=== PATIENT | male | born 1950 ===

== ENCOUNTER 2017-08-09 07:19 | Day surgery (SDC) | payer MEDICARE, SELFPAY ==
[2016-11-21 08:35] VITALS: BMI 29.2
--- NOTE | 2017-08-09 07:26 | CP.SDSHP ---
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 esophageal varices, surveillance Pt. Evaluated Today:Candidate for Anesthesia & Procedure: Yes - Date & Time Date: 08/09/17 Time: 07:25 Short Stay Discharge - Short Stay Discharge Admitting Diagnosis/Reason for Visit: UNSPECIFIED CIRRHOSIS OF LIVER Disposition: HOME/ ROUTINE
[2017-08-09] MEDS ORDERED: Lactated Ringer's 500 ML IV ONE ×2 (08:09)
[2017-08-09] MEDS ORDERED: Propofol 10 mg/ml Inj (20 ML) ONE (08:54)
[2017-08-09] MEDS ORDERED: Lidocaine Hydrochloride 5 ML INJ ONE (08:54)
[2017-08-09] MEDS ORDERED: Pantoprazole 40 mg EC Tab PO ONE (09:00)
[2017-08-09 09:25] VITALS: TEMP 97
[2017-08-09 09:30] VITALS: RESP 18; O2SAT 99
[2017-08-09 10:02] VITALS: BP 131/85; PULSE 57
== END 2017-08-09 10:00 | disposition home or self-care (01) ==
LOC: C.ENDO 07:19
PROVIDERS: ATTEND Internal Medicine Gastroenterology
DX: I85.00 Esophageal varices without bleeding (principal); K29.70 Gastritis, unspecified, without bleeding
CPT/HCPCS: 43235; 82948; J2704; J7120

== ENCOUNTER 2018-03-19 10:16 | Day surgery (SDC) | payer MEDICARE, OTHER ==
[2016-11-21 08:35] VITALS: BMI 29.2
[2018-03-19] MEDS ORDERED: Lidocaine Hydrochloride 10 ML INJ ONE (15:56)
[2018-03-19] MEDS ORDERED: Bupivacaine 0.25% 20 ML INJ IJ ONE (16:03)
[2018-03-19 16:58] VITALS: RESP 16; O2SAT 98
[2018-03-19 17:33] VITALS: BP 152/85; PULSE 57; TEMP 97.9
--- NOTE | 2018-03-20 03:51 | OP ---
PROCEDURE DATE: 03/19/2018 PREOPERATIVE DIAGNOSIS: A 3-cm mass and lesion of the right leg. POSTOPERATIVE DIAGNOSIS: A 3-cm mass and lesion of the right leg. PROCEDURE PERFORMED: Wide and deep excision mass/lesion of the right leg. SURGEON: Drake Anderson MD TYPE OF ANESTHESIA: Local. BLOOD LOSS: 20 mL. POSTOPERATIVE CONDITION: Stable. DESCRIPTION OF PROCEDURE: The patient was taken to the operating room and now placed in the supine position. Local anesthesia was administered and the right leg was prepped and draped. A generous elliptical incision was made surrounding the mass. It was dissected free and removed. Tissue flaps were raised and a tissue transfer closure was performed with multiple layers of Monocryl, subcuticular Monocryl, and glue. The patient tolerated the procedure well, returned to recovery room in stable condition. Drake Anderson MD
== END 2018-03-19 17:37 | disposition home or self-care (01) ==
LOC: C.SDS 10:16
PROVIDERS: ATTEND Surgery
DX: L90.5 Scar conditions and fibrosis of skin (principal)

== ENCOUNTER 2018-07-18 15:55 | Observation (INO) | payer MEDICARE, OTHER ==
[2018-07-18 15:55] VITALS: BMI 29.2
[2018-07-18] MEDS ORDERED: Sodium Chloride 0.9% 1,000 ML IV ONE ×2 (16:29→18:11)
--- NOTE | 2018-07-18 16:37 | C.PDOC ---
History Of Present Illness 67 y/o male pt presents to the ER complaining of abdominal pain for x4 days. Associated sx includes diarrhea and weakness. Pt is scheduled for an endoscopy with Dr. Himanshu Aguilar in a couple of days. Pt denies nausea, vomiting, fever and chills. Time Seen by Provider: 07/18/18 16:25 Chief Complaint (Nursing): Abdominal Pain History Per: Patient History/Exam Limitations: no limitations Onset/Duration Of Symptoms: Days (x4) Current Symptoms Are (Timing): Still Present Past Medical History Reviewed: Historical Data, Nursing Documentation, Vital Signs Vital Signs: Last Vital Signs Temp 98 F 07/18/18 16:07 Pulse 111 H 07/18/18 16:07 Resp 18 07/18/18 16:07 BP 105/73 07/18/18 16:07 Pulse Ox 98 07/18/18 16:07 - Medical History PMH: Anxiety, Dementia (pt. 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 Constitutional: Negative for: Fever, Chills Gastrointestinal: Positive for: Abdominal Pain (lower), Diarrhea. Negative for: Nausea, Vomiting Neurological: Positive for: Weakness Physical Exam - Physical Exam Appears: Non-toxic, No Acute Distress Skin: Normal Color, Warm, Dry Head: Normacephalic Eye(s): bilateral: Normal Inspection, EOMI Oral Mucosa: Moist Throat: Normal Neck: Normal ROM, Supple Chest: Symmetrical Cardiovascular: Rhythm Regular Respiratory: Normal Breath Sounds Gastrointestinal/Abdominal: Soft, Tenderness (diffuse lower abdominal pain ), No Distention, No Guarding, No Rebound Back: No CVA Tenderness Extremity: Normal ROM (x4) Neurological/Psych: Oriented x3, Normal Speech, Normal Cognition Gait: Steady ED Course And Treatment - Laboratory Results Result Diagrams: 07/18/18 16:49 07/18/18 16:49 Lab Interpretation: Abnormal O2 Sat by Pulse Oximetry: 98 (RA) Pulse Ox Interpretation: Normal - CT Scan/US No standard instances Other Rad Studies (CT/US): Read By Radiologist, Radiology Report Reviewed CT/US Interpretation: HISTORY: Pain. COMPARISON: CT abdomen pelvis without and with IV contrast performed 10/15/15. TECHNIQUE: Contiguous axial images of the abdomen and pelvis. No oral or IV contrast administered. Coronal and Sagittal reformats generated and reviewed. Radiation dose: Total exam DLP = 748.36 mGy-cm. This CT exam was performed using one or more of the following dose reduction techniques: Automated exposure control, adjustment of the mA and/or kV according to patient size, and/or use of iterative reconstruction technique. FINDINGS: There is limited evaluation of the solid organs without the administration of IV contrast. LOWER THORAX: Bibasilar atelectasis. There is no visible pleural effusion or pneumothorax. Right basilar calcified granuloma. Moderate hiatal hernia. LIVER: Nodular hepatic contour.Hypoattenuation of the liver compatible with hepatic steatosis. GALLBLADDER AND BILE DUCTS: Cholelithiasis. PANCREAS: Unremarkable. SPLEEN: Splenomegaly. 16 mm probable splenule. ADRENALS: Unremarkable. KIDNEYS AND URETERS: No hydronephrosis or obstructing renal calculus. BLADDER: Irregular thick-walled underdistended urinary bladder. REPRODUCTIVE: Unremarkable. APPE NDIX: The appendix appears within normal limits of caliber. No secondary signs of acute appendicitis. BOWEL: Gastric wall thickening. The stomach is nondistended which limits evaluation. Lack of oral contrast limits evaluation for bowel pathology. The bowel loops appear within normal limits of caliber without evidence of intestinal obstruction. PERITONEUM: No significant free fluid. No definite free air. LYMPH NODES: Mesenteric, periportal, and retroperitoneal adenopathy measuring up to approximately 15 mm. VASCULATURE: Atherosclerotic calcifications of the aorta. No aortic aneurysm. BONES: No acute osseous abnormality is detected. OTHER FINDINGS: None. IMPRESSION: Splenomegaly. Hepatic cirrhosis. Fatty infiltration. Irregular thick-walled underdistended urinary bladder. Correlation with urinalysis. Indeterminate mesenteric, periportal, and retroperitoneal adenopathy measuring up to approximately 15 mm. Cholelithiasis. Gastric wall thickening. Correlate clin ically. Suggest further evaluation with endoscopy if indicated. Progress Note: Treated with IVF NSS x 2 liters and zofran Reassessment Condition: Unchanged - Physician Consult Information Physician Contacted: Jeimy Perez Outcome Of Conversation: admit Medical Decision Making Medical Decision Making: Impression: abdominal pain with diarrhea and weakness Plans: -- CT scan abd and pelvis -- chem labs -- blood work -- IV fluids -- UA Disposition Discussed With Dr.: Jeimy Perez Doctor Will See Patient In The: Hospital - Disposition Disposition: HOSPITALIZED Disposition Time: 18:30 Condition: STABLE Forms: [facility] (Latvian) - POA Present On Arrival: None - Clinical Impression Clinical Impression: Abdominal pain, Diarrhea, Dehydration - PA / CORPORATE QUALITY ASSURANCE MANAGER / Resident Statement MD/DO has reviewed & agrees with the documentation as recorded. - Scribe Statement The provider has reviewed the documentation as recorded by the Roxanne Jefferson Do All medical record entries made by the Scribe were at my direction and personally dictated by me. I have reviewed the chart and agree that the record accurately reflects my personal performance of the history, physical exam, medical decision making, and the department course for this patient. I have also personally directed, reviewed, and agree with the discharge instructions and disposition. Decision To Admit - Pt Status Changed To: Hospital Disposition Of: Observation - . Bed Request Type: Regular Admitting Physician: Jeimy Perez Patient Diagnosis: Abdominal pain, Diarrhea, Dehydration
[2018-07-18 16:56] LABS: BASO # 0.1 K/uL (0.0-0.2); BASO % 0.8 % (0.0-2.0); EOS # 0.1 K/uL (0.0-0.7); EOS % 1.1 % (0.0-4.0); HEMOGLOBIN 14.2 g/dL (12.0-18.0); LYMPH % 26.8 % (20.0-40.0); MEAN CELL VOLUME 84.3 fL (80.0-94.0); MEAN CORPUSCULAR HEMOGLOBIN 28.5 pg (27.0-31.0); MEAN CORPUSCULAR HGB CONC 33.9 g/dL (33.0-37.0); MEAN PLATELET VOLUME 9.9 fL (7.2-11.7); MONO # 1.1 K/uL (0.0-0.8); MONO % 14.8 % (0.0-10.0); NEUT # 4.2 K/uL (1.8-7.0); NEUT % 56.5 % (50.0-75.0); NRBC % 0.1 % (0.0-2.0); RBC 4.98 Mil/uL (4.40-5.90); RED CELL DISTRIBUTION WIDTH 15.2 % (11.5-14.5); WHITE BLOOD COUNT 7.5 K/uL (4.8-10.8)
[2018-07-18] MEDS ORDERED: Sodium Chloride 0.9% 1,000 ML ONE (16:56)
[2018-07-18 17:25] LABS: ALB/GLOB RATIO 1.3 (1.0-2.1); ALBUMIN 4.2 g/dL (3.5-5.0); CALCIUM 9.8 mg/dl (8.6-10.4)
--- NOTE | 2018-07-18 17:58 | CT ---
PROCEDURE: CT Abdomen and Pelvis without Oral or IV contrast. HISTORY: Pain COMPARISON: CT abdomen pelvis without and with IV contrast performed 10/15/15 TECHNIQUE: Contiguous axial images of the abdomen and pelvis. No oral or IV contrast administered. Coronal and Sagittal reformats generated and reviewed. Radiation dose: Total exam DLP = 748.36 mGy-cm. This CT exam was performed using one or more of the following dose reduction techniques: Automated exposure control, adjustment of the mA and/or kV according to patient size, and/or use of iterative reconstruction technique. FINDINGS: There is limited evaluation of the solid organs without the administration of IV contrast. LOWER THORAX: Bibasilar atelectasis. There is no visible pleural effusion or pneumothorax. Right basilar calcified granuloma. Moderate hiatal hernia. LIVER: Nodular hepatic contour.Hypoattenuation of the liver compatible with hepatic steatosis. GALLBLADDER AND BILE DUCTS: Cholelithiasis. PANCREAS: Unremarkable. SPLEEN: Splenomegaly. 16 mm probable splenule. ADRENALS: Unremarkable. KIDNEYS AND URETERS: No hydronephrosis or obstructing renal calculus. BLADDER: Irregular thick-walled underdistended urinary bladder. REPRODUCTIVE: Unremarkable. APPENDIX: The appendix appears within normal limits of caliber. No secondary signs of acute appendicitis. BOWEL: Gastric wall thickening. The stomach is nondistended which limits evaluation. Lack of oral contrast limits evaluation for bowel pathology. The bowel loops appear within normal limits of caliber without evidence of intestinal obstruction. PERITONEUM: No significant free fluid. No definite free air. LYMPH NODES: Mesenteric, periportal, and retroperitoneal adenopathy measuring up to approximately 15 mm. VASCULATURE: Atherosclerotic calcifications of the aorta. No aortic aneurysm. BONES: No acute osseous abnormality is detected. OTHER FINDINGS: None. IMPRESSION: Splenomegaly. Hepatic cirrhosis. Fatty infiltration. Irregular thick-walled underdistended urinary bladder. Correlation with urinalysis. Indeterminate mesenteric, periportal, and retroperitoneal adenopathy measuring up to approximately 15 mm. Cholelithiasis. Gastric wall thickening. Correlate clinically. Suggest further evaluation with endoscopy if indicated.
[2018-07-18 18:11] LABS: SQUAMOUS EPITHIAL < 1 /hpf (0-5); URINE BACTERIA RARE (<OCC); URINE BILIRUBIN NEGATIVE (NEGATIVE); URINE BLOOD NEGATIVE (NEGATIVE); URINE CLARITY Clear (Clear); URINE COLOR Yellow (YELLOW); URINE GLUCOSE (UA) NORMAL (Normal); URINE LEUKOCYTE ESTERASE NEG Leu/uL (Negative); URINE PROTEIN 1+ mg/dL (NEGATIVE); URINE UROBILINOGEN NORMAL mg/dL (0.2-1.0)
[2018-07-18] MEDS: Sodium Chloride 0.9% 1,000 ML IV SCH (23:06)
[2018-07-19 07:03] LABS: BLOOD UREA NITROGEN 20 mg/dL (9-20); CALCIUM 9.2 mg/dl (8.6-10.4); GFR NON-AFRICAN AMERICAN 51
[2018-07-19 07:17] LABS: BASO % 0.4 % (0.0-2.0); EOS # 0.1 K/uL (0.0-0.7); EOS % 1.6 % (0.0-4.0); HEMOGLOBIN 13.2 g/dL (12.0-18.0); LYMPH # 1.3 K/uL (1.0-4.3); LYMPH % 25.2 % (20.0-40.0); MEAN CELL VOLUME 85.6 fL (80.0-94.0); MEAN CORPUSCULAR HEMOGLOBIN 28.7 pg (27.0-31.0); MEAN CORPUSCULAR HGB CONC 33.5 g/dL (33.0-37.0); MEAN PLATELET VOLUME 9.4 fL (7.2-11.7); MONO # 0.7 K/uL (0.0-0.8); MONO % 14.5 % (0.0-10.0); NEUT % 58.3 % (50.0-75.0); RBC 4.6 Mil/uL (4.40-5.90); RED CELL DISTRIBUTION WIDTH 15.2 % (11.5-14.5); WHITE BLOOD COUNT 5.1 K/uL (4.8-10.8)
[2018-07-19] MEDS ORDERED: PROTEASE PO SCH ×2 (10:00)
[2018-07-19] MEDS ORDERED: LIPASE PO SCH ×2 (10:00)
[2018-07-19] MEDS ORDERED: AMYLASE PO SCH ×2 (10:00)
[2018-07-19] MEDS: Cholestyramine 4 gm/Pkt UD PO SCH (10:07)
[2018-07-19] MEDS: Enoxaparin 40 mg Syringe SC SCH (10:08)
--- NOTE | 2018-07-19 11:35 | CP.PCM.HP ---
History of Present Illness - History of Present Illness History of Present Illness: pt came in toed admited for diarhea abd dianelys dehydration and weeknessfeels beter now Present on Admission - Present on Admission Any Indicators Present on Admission: No Review of Systems - Review of Systems Systems not reviewed;Unavailable: Acuity of Condition - Constitutional Constitutional: As Per HPI - EENT Eyes: As Per HPI Ears: As Per HPI Nose/Mouth/Throat: As Per HPI - Gastrointestinal Gastrointestinal: Abdominal Pain, Bloating, Diarrhea - Genitourinary Genitourinary: As Per HPI - Reproductive: Male Reproductive:Male: As Per HPI - Musculoskeletal Musculoskeletal: As Per HPI - Integumentary Integumentary: As Per HPI - Neurological Neurological: As Per HPI - Psychiatric Psychiatric: As Per HPI - Endocrine Endocrine: Flushing - Hematologic/Lymphatic Hematologic: As Per HPI Past Patient History - Past Medical History & Family History Past Medical History?: Yes - Past Social History Smoking Status: Former Smoker - CARDIAC Hx Hypercholesterolemia: Yes Hx Hypertension: Yes - PULMONARY Hx Respiratory Disorders: No - NEUROLOGICAL Hx Dementia: Yes (pt. AAOX3) Hx Transient Ischemic Attacks (TIA): Yes - HEENT Hx HEENT Problems: Yes Other/Comment: glasses at all times - RENAL Hx Chronic Kidney Disease: No - ENDOCRINE/METABOLIC Hx Endocrine Disorders: Yes Hx Diabetes Mellitus Type 2: Yes - HEMATOLOGICAL/ONCOLOGICAL Hx Blood Disorders: Yes Hx Cirrhosis: Yes Hx Hepatitis C: Yes Other/Comment: Pt. states low PLT, poss. GI Bleeding(Hx) - INTEGUMENTARY Hx Dermatological Problems: No - MUSCULOSKELETAL/RHEUMATOLOGICAL Hx Musculoskeletal Disorders: No - GASTROINTESTINAL Hx Gastrointestinal Disorders: Yes Hx Hemorrhoids: Yes Other/Comment: pt. 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) - SURGICAL HISTORY Hx Surgeries: Yes - ANESTHESIA Hx Anesthesia: Yes Hx Anesthesia Reactions: No Hx Malignant Hyperthermia: No Meds Allergies/Adverse Reactions: Allergies Allergy/AdvReac Type Severity Reaction Status Date / Time No Known Allergies Allergy Verified 07/18/18 16:09 Physical Exam - Constitutional Appears: No Acute Distress - Head Exam Head Exam: NORMAL INSPECTION - ENT Exam ENT Exam: Normal Exam - Neck Exam Neck exam: Positive for: Normal Inspection - Respiratory Exam Respiratory Exam: NORMAL BREATHING PATTERN - Cardiovascular Exam Cardiovascular Exam: REGULAR RHYTHM - GI/Abdominal Exam GI & Abdominal Exam: Normal Bowel Sounds - Rectal Exam Rectal Exam: NORMAL INSPECTION - Exam Exam: NORMAL INSPECTION - Extremities Exam Extremities exam: Positive for: normal inspection - Back Exam Back exam: NORMAL INSPECTION - Neurological Exam Neurological exam: Alert, Oriented x3 - Psychiatric Exam Psychiatric exam: Normal Affect - Skin Skin Exam: Normal Color Results - Vital Signs Recent Vital Signs: Last Vital Signs Temp 98 F 07/19/18 08:16 Pulse 61 07/19/18 08:16 Resp 20 07/19/18 08:16 BP 147/80 07/19/18 08:16 Pulse Ox 97 07/19/18 08:16 - Labs Result Diagrams: 07/19/18 06:42 07/19/18 06:42 Labs: Laboratory Results - last 24 hr 07/18/18 07/18/18 07/18/18 16:49 16:49 17:58 WBC 7.5 RBC 4.98 Hgb 14.2 Hct 42.0 MCV 84.3 MCH 28.5 MCHC 33.9 RDW 15.2 H Plt Count 134 MPV 9.9 Neut % (Auto) 56.5 Lymph % (Auto) 26.8 [place] % (Auto) 14.8 H Eos % (Auto) 1.1 Baso % (Auto) 0.8 Neut # (Auto) 4.2 Lymph # (Auto) 2.0 [place] # (Auto) 1.1 H Eos # (Auto) 0.1 Baso # (Auto) 0.1 Sodium 135 Potassium 4.1 Chloride 96 L Carbon Dioxide 29 Anion Gap 14 BUN 32 H Creatinine 1.9 H Est GFR ( Amer) 43 Est GFR (Non-Af Amer) 36 POC Glucose (mg/dL) Random Glucose 133 H Calcium 9.8 Total Bilirubin 1.3 AST 38 ALT 32 Alkaline Phosphatase 97 Total Protein 7.5 Albumin 4.2 Globulin 3.3 Albumin/Globulin Ratio 1.3 Lipase 183 Urine Color Yellow Urine Clarity Clear Urine pH 5.0 Ur Specific [place] 1.014 Urine Protein 1+ H Urine Glucose (UA) Normal Urine Ketones Negative Urine Blood Negative Urine Nitrate Negative Urine Bilirubin Negative Urine Urobilinogen Normal Ur Leukocyte Esterase Neg Urine WBC (Auto) 2 Urine RBC (Auto) 1 Ur Squamous Epith Cells < 1 Urine Bacteria Rare Hyaline Casts 3-5 H 07/19/18 07/19/18 07/19/18 06:42 06:42 07:11 WBC 5.1 RBC 4.60 Hgb 13.2 Hct 39.3 MCV 85.6 MCH 28.7 MCHC 33.5 RDW 15.2 H Plt Count 96 L D MPV 9.4 Neut % (Auto) 58.3 Lymph % (Auto) 25.2 [place] % (Auto) 14.5 H Eos % (Auto) 1.6 Baso % (Auto) 0.4 Neut # (Auto) 3.0 Lymph # (Auto) 1.3 [place] # (Auto) 0.7 Eos # (Auto) 0.1 Baso # (Auto) 0.0 Sodium 136 Potassium 4.4 Chloride 101 Carbon Dioxide 28 Anion Gap 12 BUN 20 Creatinine 1.4 Est GFR ( Amer) > 60 Est GFR (Non-Af Amer) 51 POC Glucose (mg/dL) 137 H Random Glucose 136 H Calcium 9.2 Total Bilirubin AST ALT Alkaline Phosphatase Total Protein Albumin Globulin Albumin/Globulin Ratio Lipase Urine Color Urine Clarity Urine pH Ur Specific [place] Urine Protein Urine Glucose (UA) Urine Ketones Urine Blood Urine Nitrate Urine Bilirubin Urine Urobilinogen Ur Leukocyte Esterase Urine WBC (Auto) Urine RBC (Auto) Ur Squamous Epith Cells Urine Bacteria Hyaline Casts Assessment & Plan - Assessment and Plan (Free Text) Assessment: ac dehydration ac diaehea imroved liver scirhsis s/p hep c treatment chrinic gastritis will disc pt today and for endoscopy by dr cee Plan: dc home - Date & Time Date: 07/19/18 Time: 11:38
[2018-07-19] MEDS ORDERED: (Novolog) Insulin Aspart, Recombinant 100 u/ml 10 ml vial SC SCH (12:50)
[2018-07-19] MEDS: (Novolog) Insulin Aspart, Recombinant 100 u/ml 10 ml vial SC SCH ×3 (13:04→21:46)
[2018-07-19] MEDS: Sodium Chloride 0.9% 1,000 ML IV SCH (13:04)
[2018-07-19 13:30] VITALS: O2SAT 98
[2018-07-20] MEDS: (Novolog) Insulin Aspart, Recombinant 100 u/ml 10 ml vial SC SCH (07:39)
[2018-07-20 08:13] VITALS: RESP 20; TEMP 98.4
[2018-07-20 09:19] VITALS: BP 151/92; PULSE 61
[2018-07-20] MEDS: Enoxaparin 40 mg Syringe SC SCH (09:20)
[2018-07-20] MEDS: Cholestyramine 4 gm/Pkt UD PO SCH (09:20)
--- NOTE | 2018-07-20 10:42 | CP.PCM.PN ---
Subjective - Date & Time of Evaluation Date of Evaluation: 07/20/18 Time of Evaluation: 10:39 - Subjective Subjective: pt ate all his breakfastno pain no vomiting Objective - Vital Signs/Intake and Output Vital Signs (last 24 hours): Temp Pulse Resp BP Pulse Ox 98.4 F 61 20 151/92 H 98 07/20/18 08:00 07/20/18 09:19 07/20/18 08:00 07/20/18 09:19 07/20/18 08:00 Intake and Output: 07/20/18 07/20/18 06:59 18:59 Intake Total 640 Balance 640 - Medications Medications: Current Medications Cholestyramine Resin (Questran) 4 gm PO DAILY [facility] Last Admin: 07/20/18 09:20 Dose: 4 gm Enoxaparin Sodium (Lovenox) 40 mg SC DAILY [facility] Last Admin: 07/20/18 09:20 Dose: 40 mg Home Med (Lipase/Protease/Amylase [Creon Dr 12,000 Units Capsule]) 1 tab PO DAILY [facility] Sodium Chloride (Sodium Chloride 0.9%) 1,000 mls @ 80 mls/hr IV .[id number] [facility] Last Admin: 07/19/18 13:04 Dose: Not Given Insulin Aspart (Novolog) 0 unit SC [facility]; Protocol Last Admin: 07/20/18 07:39 Dose: Not Given Lisinopril (Zestril) 5 mg PO DAILY [facility] Last Admin: 07/20/18 09:20 Dose: 5 mg Loperamide HCl (Imodium) 2 mg PO TID PRN PRN Reason: Diarrhea Propranolol HCl (Inderal) 40 mg PO DAILY [facility] Last Admin: 07/20/18 09:20 Dose: 40 mg Sitagliptin Phosphate (Januvia) 50 mg PO DAILY [facility] Last Admin: 07/20/18 09:20 Dose: 50 mg - Labs Labs: 07/19/18 06:42 07/19/18 06:42 - Constitutional Appears: Non-toxic - Head Exam Head Exam: NORMAL INSPECTION - Eye Exam Eye Exam: Normal appearance Pupil Exam: NORMAL ACCOMODATION - ENT Exam ENT Exam: Normal Exam - Neck Exam Neck Exam: Full ROM - Respiratory Exam Respiratory Exam: Clear to Ausculation Bilateral - Cardiovascular Exam Cardiovascular Exam: REGULAR RHYTHM - Exam Exam: NORMAL INSPECTION - Extremities Exam Extremities Exam: Full ROM - Back Exam Back Exam: NORMAL INSPECTION - Neurological Exam Neurological Exam: Alert, Normal Gait, Oriented x3 - Psychiatric Exam Psychiatric exam: Normal Affect - Skin Skin Exam: Normal Color Assessment and Plan - Assessment and Plan (Free Text) Assessment: pt improved tolerating diet bs ok dehydration improved willdc home today f/u by his md Plan: disch
== END 2018-07-20 12:04 | disposition home or self-care (01) ==
LOC: C.ER 15:55 → C.9E 18:24 → C.5S 22:01
PROVIDERS: ADMIT Internal Medicine; ATTEND Internal Medicine
DX: K29.70 Gastritis, unspecified, without bleeding (principal); E86.0 Dehydration; K74.60 Unspecified cirrhosis of liver; Z86.73 Personal history of transient ischemic attack (TIA), and cerebral infarction without residual deficits; B19.20 Unspecified viral hepatitis C without hepatic coma; F32.9 Major depressive disorder, single episode, unspecified; F41.9 Anxiety disorder, unspecified; E11.9 Type 2 diabetes mellitus without complications; Z87.440 Personal history of urinary (tract) infections; E78.00 Pure hypercholesterolemia, unspecified; Z87.891 Personal history of nicotine dependence
CPT/HCPCS: 36415; 74176; 80048; 80053; 81001; 82948; 83690; 85025; 96361; 96372; 96374; 96375; 99285; G0378; J1650; J2270; J2405; J7030

== ENCOUNTER 2018-07-25 08:37 | Day surgery (SDC) | payer MEDICARE, OTHER ==
[2018-07-25 09:12] VITALS: BMI 30.2
--- NOTE | 2018-07-25 09:12 | CP.SDSHP ---
Same Day Surgery H & P - History Proposed Procedure: egd Pre-Op Diagnosis: surveillance of esophageal varices. 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 cirrhosis from HCV-S/P SVR Pt. Evaluated Today:Candidate for Anesthesia & Procedure: Yes - Date & Time Date: 07/25/18 Time: 09:12 Short Stay Discharge - Short Stay Discharge Admitting Diagnosis/Reason for Visit: UNSPECIFIED CIRRHOSIS OF LIVER Disposition: HOME/ ROUTINE
[2018-07-25] MEDS ORDERED: Pantoprazole 40 mg EC Tab PO ONE (09:30)
[2018-07-25] MEDS ORDERED: Lactated Ringer's 500 ML IV ONE ×2 (09:38)
[2018-07-25] MEDS ORDERED: Propofol 10 mg/ml Inj (20 ML) ONE (09:47)
[2018-07-25 10:20] VITALS: TEMP 97.7; O2SAT 100
[2018-07-25 10:52] VITALS: RESP 19
[2018-07-25 10:54] VITALS: BP 124/68; PULSE 63
== END 2018-07-25 12:50 | disposition home or self-care (01) ==
LOC: C.ENDO 08:37
PROVIDERS: ATTEND Internal Medicine Gastroenterology
DX: K74.60 Unspecified cirrhosis of liver (principal); B18.2 Chronic viral hepatitis C; K76.6 Portal hypertension; K31.89 Other diseases of stomach and duodenum; I85.00 Esophageal varices without bleeding; K29.70 Gastritis, unspecified, without bleeding; D64.9 Anemia, unspecified; D69.59 Other secondary thrombocytopenia; E11.9 Type 2 diabetes mellitus without complications; E66.9 Obesity, unspecified; I10 Essential (primary) hypertension
CPT/HCPCS: 43235; 82948; J2001; J2704; J7120

== ENCOUNTER 2018-10-23 17:55 | Inpatient (IN) | payer MEDICARE, OTHER ==
[2018-10-23 17:56] VITALS: BMI 30.2
[2018-10-23 18:56] LABS: BASO % 0.6 % (0.0-2.0); EOS # 0.1 K/uL (0.0-0.7); EOS % 1.7 % (0.0-4.0); HEMOGLOBIN 12.9 g/dL (12.0-18.0); LYMPH # 1.3 K/uL (1.0-4.3); MEAN CORPUSCULAR HEMOGLOBIN 29.5 pg (27.0-31.0); MEAN CORPUSCULAR HGB CONC 33.3 g/dL (33.0-37.0); MEAN PLATELET VOLUME 10.2 fL (7.2-11.7); MONO # 0.6 K/uL (0.0-0.8); MONO % 9.2 % (0.0-10.0); NEUT # 4.2 K/uL (1.8-7.0); NEUT % 67.5 % (50.0-75.0); NRBC % 0.1 % (0.0-2.0); RBC 4.36 Mil/uL (4.40-5.90); WHITE BLOOD COUNT 6.2 K/uL (4.8-10.8)
--- NOTE | 2018-10-23 18:56 | C.PDOC ---
History Of Present Illness 68 y/o male with a PMHx of liver cirrhosis, HTN, and DM, presents to the ED complaining of 2 complaints. pt reports penile and testicular swelling for the past few days. pt is poor historian, and states "he just noticed it in the [place], and felt it would get better". denies trauma or inciting factor. Also reports he has upper abd pain c/o of mild nausea, and "reflux". Patient is a poor historian. No fevers or other complaints no urinary complaints. Time Seen by Provider: 10/23/18 18:31 Chief Complaint (Nursing): Male Genitourinary History Per: Patient History/Exam Limitations: no limitations Onset/Duration Of Symptoms: Days Current Symptoms Are (Timing): Still Present Associated Symptoms: Nausea Past Medical History Reviewed: Historical Data, Nursing Documentation, Vital Signs Vital Signs: Last Vital Signs Temp 98.1 F 10/23/18 17:58 Pulse 71 10/23/18 17:58 Resp 20 10/23/18 17:58 BP 158/102 H 10/23/18 17:58 Pulse Ox 97 10/23/18 17:58 - Medical History PMH: Anxiety, Dementia (pt. AAOX3), Depression, Diabetes, Gastritis, GERD, HTN, Hypercholesterolemia, TIA Denies: Fractures, Chronic Kidney Disease Surgical History: Endoscopy Denies: Pacemaker Family History: States: Unknown Family Hx - Social History Hx Tobacco Use: Yes Hx Alcohol Use: Yes (sober x 17 years) Hx Substance Use: Yes (MORE THAN 20 YEARS ABSTINENCE) - Immunization History Hx Tetanus Toxoid Vaccination: No Hx Influenza Vaccination: Yes Hx Pneumococcal Vaccination: Yes Review Of Systems Except As Marked, All Systems Reviewed And Found Negative. Constitutional: Negative for: Fever, Chills Cardiovascular: Negative for: Chest Pain Respiratory: Negative for: Shortness of Breath Gastrointestinal: Positive for: Nausea ("reflux acting up"). Negative for: Ab dominal Pain Genitourinary: Positive for: Other (Penile swelling). Negative for: Dysuria, Hematuria, Rash Neurological: Negative for: Weakness, Dizziness Physical Exam - Physical Exam Appears: Non-toxic, No Acute Distress Skin: Warm, Dry Head: Atraumatic, Normacephalic Eye(s): bilateral: Normal Inspection, PERRL, EOMI Neck: Normal ROM Chest: Symmetrical, No Tenderness Cardiovascular: Rhythm Regular, No Murmur Respiratory: Normal Breath Sounds, No Rales, No Rhonchi, No Wheezing Gastrointestinal/Abdominal: Soft, No Tenderness, No Distention Male Genital: No Testicular Tenderness, Testicular Swelling (diffuse penile and testicular swelling) Extremity: Bilateral: Atraumatic, Normal Color And Temperature Pulses: Left Radial: Normal, Right Radial: Normal Neurological/Psych: Oriented x3 Gait: Steady ED Course And Treatment - Laboratory Results Result Diagrams: 10/24/18 07:29 10/24/18 07:29 O2 Sat by Pulse Oximetry: 97 (RA) Pulse Ox Interpretation: Normal - CT Scan/US Testicular US Other Rad Studies (CT/US): Read By Radiologist, Radiology Report Reviewed CT/US Interpretation: Name:PIOTR BABB Exam Date:Oct 23, 2018 7:53:44 PM EST. Modality Type:SD\\US\\SR. Description:US - TESTICULAR. Gender:M Laterality:Bilateral. :52 Referring Physician:Matt Hill (). History. Testicular swelling. Technique. Realtime sonography through the scrotum with color and Doppler flow. Comparison. None Available. Findings. Right Testicle. Measures 4.99 x 2.4 x 2.92 cm. Normal echotexture and flow. Right Epididymis. Epididymal head measures 1.55 x 0.67 x 1.18 cm. Grossly unremarkable appearance with normal flow. Left Testicle. Measures 5.04 x 2.64 x 2.71 cm. Normal echotexture and flow. Left Epididymis. Epididymal head measures 1.02 x 0.66 x 0.99 cm. Cyst measures 0.31 x 0.19 x 0.23 cm. Hydrocele. Bilateral. Varicocele. Bilateral. Other Findings. None. Impression. 1. Left epididymal head cyst. 2. Bilateral hydroceles. 3. Bilateral varicoceles. . Electronically signed on Oct 23, 2018 9:10:05 PM EST by: Gary Loomis M.D., CAROLYNN Certified By ABR & CBCCT. Fellowship Trained MRI and CT Specialist CT abd/pelvis Other Rad Studies (CT/US): Read By Radiologist, Radiology Report Reviewed CT/US Interpretation: Name:HOLLEY SALDAÑA Exam Date:Oct 23, 2018 8:23:21 PM EST. Modality Type:CT. Description:CT - ABDOMEN AND PELVIS WITH CORONAL AND SAGITTAL MPRS. Gender:M Laterality:Not applicable. :52 Referring Physician:Matt Hill (). EXAM: CT Abdomen and Pelvis with IV contrast. CLINICAL HISTORY: Testicular pain. TECHNIQUE: Axial computed tomography images of the abdomen and pelvis with intravenous contrast. 0.00 mGy-cm. CONTRAST: With; 100MLS OMNI 300. COMPARISON: None provided. FINDINGS: LUNG BASES: The lung bases appear clear. No pleural effusions are seen. LIVER: Liver is markedly lobulated with enlarged caudate lobe consistent with cirrhosis. No evidence of hepatic mass. GALLBLADDER AND BILE DUCTS: A 3.2 mm cholelith is lodged within the gallbladder neck. The gallbladder is partially contracted and demonstrates gallbladder wall thickening which measures up to approximately 5.3 mm. Consider additional evaluation with abdominal ultrasound and or hepatobiliary scan. No biliary ductal dilatation is evident. PANCREAS: Unremarkable. SPLEEN: Unremarkable. Incidental note is made of an accessory splenic lobule along the inferior pole; a normal variant finding. ADRENAL GLANDS: Unremarkable. KIDNEYS, URETERS, AND BLADDER: The kidneys appear within normal limits. There is no hydronephrosis or hydroureter. No urinary calculi are seen. The urinary bladder is normal in size and configuration. STOMACH AND BOWEL: Unremarkable appearance of the stomach and bowel. No evidence of bowel obstruction. No evidence suggesting enteritis or colitis. APPENDIX: No evidence of acute appendicitis on CT examination. PERITONEUM: No free fluid. No free air. A small left inguinal hernia is present which contains fat. LYMPH NODES: There is some mild periaortic and portacaval lymphadenopathy noted associated with mesenteric stranding. Please excludes hepatitis. REPRODUCTIVE: The seminal vesicles appeared normal and symmetrical in size. There is prostatic hypertrophy noted which measured 5.6 cm transversely. VASCULATURE: No evidence of abdominal aortic aneurysm. Extensive atherosclerotic vascular plaquing is present. BONES: No aggressive appearing osseous lesion. No acute osseous pathology evident. IMPRESSION: 1. Evidence of a 3.2 mm cholelith lodged within the gallbladder neck, contracted gallbladder. Consider additional evaluation with abdominal ultrasound and or hepatobiliary scan. 2. Periaortic and daniel-portacaval mild ymphadenopathy is noted. Mesenteric stranding. Please excludes hepatitis. 3. Liver is markedly lobulated with enlarged caudate lobe consistent with cirrhosis. No evidence of hepatic mass. 4. Prostatic hypertrophy with measurement as given above. 5. Small left inguinal hernia containing fat. . Electronically signed on Oct 23, 2018 9:47:07 PM EST by: Gary Loomis M.D., CAROLYNN Certified By ABR & CBCCT. Fellowship Trained MRI and CT Specialist Medical Decision Making Medical Decision Making: r Initial Plan: - Labs - Testicular US - 40 mg IV Protonix - Reassess 19:[address] Abd/Pelvis Still pending ultrasound. Labs reviewed. US reviewed, shows bilateral hydroceles and varicoceles, and left epididymal head cyst. CT findings reviewed. Patient started on IV zosyn. 21:57 Case discussed with PMD Dr. Perez, will admit patient. request jamil on consult Disposition - Disposition Disposition: HOSPITALIZED Condition: GOOD - Scribe Statement The provider has reviewed the documentation as recorded by the Roxanne Peng Provider Attestation: All medical record entries made by the Roxanne were at my direction and personally dictated by me. I have reviewed the chart and agree that the record accurately reflects my personal performance of the history, physical exam, medical decision making, and the department course for this patient. I have also personally directed, reviewed, and agree with the discharge instructions and disposition.
[2018-10-23 18:57] LABS: MEAN CELL VOLUME 88.6 fL (80.0-94.0)
[2018-10-23 19:11] LABS: ALB/GLOB RATIO 1.3 (1.0-2.1); ALBUMIN 4.3 g/dL (3.5-5.0); ALT/SGPT 31 U/L (21-72); AST/SGOT 39 U/L (17-59); BLOOD UREA NITROGEN 12 mg/dL (9-20); CALCIUM 9.8 mg/dl (8.6-10.4); GFR NON-AFRICAN AMERICAN > 60; LIPASE 173 U/L (23-300)
[2018-10-23 19:13] LABS: INR 1.2; PROTHROMBIN TIME 13.6 SECONDS (9.7-12.2)
[2018-10-23] MEDS ORDERED: Iohexol 300 100 ML IJ ONE (19:26)
[2018-10-23 21:14] LABS: SQUAMOUS EPITHIAL < 1 /hpf (0-5); URINE BILIRUBIN NEGATIVE (NEGATIVE); URINE BLOOD NEGATIVE (NEGATIVE); URINE CLARITY Clear (Clear); URINE COLOR Yellow (YELLOW); URINE GLUCOSE (UA) NORMAL (Normal); URINE LEUKOCYTE ESTERASE NEG Leu/uL (Negative); URINE PROTEIN NEGATIVE (NEGATIVE); URINE UROBILINOGEN NORMAL mg/dL (0.2-1.0)
[2018-10-23] MEDS ORDERED: Piperacillin/Tazobact 3.375 gm 100 ML IVPB STA (21:52)
[2018-10-23] MEDS ORDERED: Clotrimazole 1% Cream 15 GM TUBE TOP STA (21:53)
[2018-10-23] MEDS ORDERED: Piperacillin/Tazobact 3.375 gm 100 ML IVPB ONE (22:28)
--- NOTE | 2018-10-23 23:43 | CP.PCM.CON ---
History of Present Illness - History of Present Illness History of Present Illness: SURGERY CONSULT NOTE FOR DR. BAILEY Reason: r/o cholecystitis 68M presents with penile swelling. Patient states swelling started 2 days ago after taking Viagra and having "rough" sex. Patient denies any abnormal penile discharge. Patient denies any abdominal pain, he denies any nausea or vomiting, denies any fevers or chills. Patient has been tolerating regular diet and is currently hungry. PMH: DM, HTN, GERD, Gastritis, Liver cirrhosis, Hep C PSH: Right leg cyst removal Social: admits to tobacco use, denies alcohol and illicit drug use for past 20 years Allergies: NKDA Past Patient History - Past Medical History & Family History Past Medical History?: Yes - Past Social History Smoking Status: Former Smoker - CARDIAC Hx Hypercholesterolemia: Yes Hx Hypertension: Yes Hx Pacemaker: No - PULMONARY Hx Respiratory Disorders: No - NEUROLOGICAL Hx Dementia: Yes (pt. AAOX3) Hx Transient Ischemic Attacks (TIA): Yes - HEENT Hx HEENT Problems: No - RENAL Hx Chronic Kidney Disease: No - ENDOCRINE/METABOLIC Hx Endocrine Disorders: Yes Hx Diabetes Mellitus Type 2: Yes - HEMATOLOGICAL/ONCOLOGICAL Hx Blood Disorders: Yes Hx Blood Transfusions: No Hx Cancer: No Hx Hepatitis C: Yes (TREATMENT COMPLETED) Other/Comment: THROMBOCYTOPENIA - INTEGUMENTARY Hx Dermatological Problems: No - MUSCULOSKELETAL/RHEUMATOLOGICAL Hx Fractures: No - GASTROINTESTINAL Hx Gastritis: Yes - GENITOURINARY/GYNECOLOGICAL Hx Genitourinary Disorders: No - PSYCHIATRIC Hx Anxiety: Yes Hx Depression: Yes Hx Substance Use: Yes (MORE THAN 20 YEARS ABSTINENCE) - SURGICAL HISTORY Hx Surgeries: Yes Hx Musculoskeletal Surgery: Yes (LESION ON RIGHT LEG REMOVED) - ANESTHESIA Hx Anesthesia: Yes Hx Anesthesia Reactions: No Hx Malignant Hyperthermia: No Meds Allergies/Adverse Reactions: Allergies Allergy/AdvReac Type Severity Reaction Status Date / Time No Known Allergies Allergy Verified 10/23/18 18:01 - Medications Medications: Current Medications Amlodipine Besylate (Norvasc) 5 mg PO DAILY DNAILO Home Med (Lipase/Protease/Amylase [[place] Dr 12,000 Units Capsule]) 1 tab PO TID DANILO Insulin Aspart (Novolog) 0 unit SC ACHS DANILO; Protocol Losartan Potassium (Cozaar) 100 mg PO DAILY DANILO Morphine Sulfate (Morphine) 1 mg IVP Q6 DANILO Multivitamins (Hexavitamin) 1 tab PO DAILY [facility] Pantoprazole Sodium (Protonix Ec Tab) 40 mg PO DAILY [facility] Propranolol HCl (Inderal) 10 mg PO DAILY [facility] Sucralfate (Carafate Tab) 1 gm PO BID [facility] Physical Exam - Constitutional Appears: Non-toxic, No Acute Distress - Eye Exam Eye Exam: EOMI, PERRL - ENT Exam ENT Exam: Mucous Membranes Moist - Respiratory Exam Respiratory Exam: Clear to Auscultation Bilateral, NORMAL BREATHING PATTERN - Cardiovascular Exam Cardiovascular Exam: REGULAR RHYTHM, +S1, +S2 - GI/Abdominal Exam GI & Abdominal Exam: Soft. absent: Distended (full, unchanged), Firm, Guarding, Rebound, Rigid, Tenderness - Exam Additional comments: swollen foreskin and penis - Extremities Exam Extremities exam: Negative for: pedal edema, tenderness - Neurological Exam Neurological exam: Alert, Oriented x3 - Psychiatric Exam Psychiatric exam: Normal Affect, Normal Mood - Skin Skin Exam: Dry, Intact, Normal Color, Warm Results - Vital Signs Recent Vital Signs: Last Vital Signs Temp 98.0 F 10/23/18 22:35 Pulse 72 10/23/18 22:35 Resp 18 10/23/18 22:35 BP 155/95 H 10/23/18 22:35 Pulse Ox 97 10/23/18 23:31 - Labs Result Diagrams: 10/23/18 18:53 10/23/18 18:53 Labs: Laboratory Results - last 24 hr 10/23/18 10/23/18 10/23/18 18:53 18:53 18:53 WBC 6.2 RBC 4.36 L Hgb 12.9 Hct 38.7 MCV 88.6 D MCH 29.5 MCHC 33.3 RDW 15.0 H Plt Count 113 L MPV 10.2 Neut % (Auto) 67.5 Lymph % (Auto) 21.0 [place] % (Auto) 9.2 Eos % (Auto) 1.7 Baso % (Auto) 0.6 Neut # (Auto) 4.2 Lymph # (Auto) 1.3 [place] # (Auto) 0.6 Eos # (Auto) 0.1 Baso # (Auto) 0.0 PT 13.6 H INR 1.2 APTT 21 Sodium 135 Potassium 4.0 Chloride 104 Carbon Dioxide 24 Anion Gap 11 BUN 12 Creatinine 0.8 Est GFR ( Amer) > 60 Est GFR (Non-Af Amer) > 60 Random Glucose 133 H Calcium 9.8 Total Bilirubin 0.9 AST 39 ALT 31 Alkaline Phosphatase 127 H D Total Protein 7.5 Albumin 4.3 Globulin 3.2 Albumin/Globulin Ratio 1.3 Lipase 173 Urine Color Urine Clarity Urine pH Ur Specific [place] Urine Protein Urine Glucose (UA) Urine Ketones Urine Blood Urine Nitrate Urine Bilirubin Urine Urobilinogen Ur Leukocyte Esterase Urine WBC (Auto) Urine RBC (Auto) Ur Squamous Epith Cells 10/23/18 21:00 WBC RBC Hgb Hct MCV MCH MCHC RDW Plt Count MPV Neut % (Auto) Lymph % (Auto) [place] % (Auto) Eos % (Auto) Baso % (Auto) Neut # (Auto) Lymph # (Auto) [place] # (Auto) Eos # (Auto) Baso # (Auto) PT INR APTT Sodium Potassium Chloride Carbon Dioxide Anion Gap BUN Creatinine Est GFR ( Amer) Est GFR (Non-Af Amer) Random Glucose Calcium Total Bilirubin AST ALT Alkaline Phosphatase Total Protein Albumin Globulin Albumin/Globulin Ratio Lipase Urine Color Yellow Urine Clarity Clear Urine pH 5.0 Ur Specific [place] 1.014 Urine Protein Negative Urine Glucose (UA) Normal Urine Ketones Negative Urine Blood Negative Urine Nitrate Negative Urine Bilirubin Negative Urine Urobilinogen Normal Ur Leukocyte Esterase Neg Urine WBC (Auto) 1 Urine RBC (Auto) 2 Ur Squamous Epith Cells < 1 Assessment & Plan - Assessment and Plan (Free Text) Assessment: 68M with swollen penis and incidental finding of cholelithiasis on CT scan Plan: - IVF - AM labs - Abdominal ultrasound - Urology consult Further recs discuss with Dr. Leatha Beatty, PGY3
[2018-10-24 01:03] VITALS: RESP 20
[2018-10-24 07:55] LABS: HEMOGLOBIN 12.4 g/dL (12.0-18.0); MEAN CELL VOLUME 88.6 fL (80.0-94.0); MEAN CORPUSCULAR HEMOGLOBIN 29.7 pg (27.0-31.0); MEAN CORPUSCULAR HGB CONC 33.5 g/dL (33.0-37.0); MEAN PLATELET VOLUME 9.9 fL (7.2-11.7); RBC 4.17 Mil/uL (4.40-5.90); RED CELL DISTRIBUTION WIDTH 15.3 % (11.5-14.5); WHITE BLOOD COUNT 4.9 K/uL (4.8-10.8)
[2018-10-24] MEDS: (Novolog) Insulin Aspart, Recombinant 100 u/ml 10 ml vial SC SCH ×4 (07:56→21:14)
[2018-10-24 07:58] LABS: ALB/GLOB RATIO 1.3 (1.0-2.1); ALBUMIN 3.9 g/dL (3.5-5.0); ALT/SGPT 37 U/L (21-72); AST/SGOT 38 U/L (17-59); BLOOD UREA NITROGEN 11 mg/dL (9-20); CALCIUM 9.6 mg/dl (8.6-10.4); GFR NON-AFRICAN AMERICAN > 60
[2018-10-24] MEDS: Multiple Vitamins Tab PO SCH (09:17)
[2018-10-24] MEDS: Pantoprazole 40 mg EC Tab PO SCH (09:18)
--- NOTE | 2018-10-24 09:48 | US ---
Date of service: 10/23/2018 HISTORY: testicular swelling TECHNIQUE: Realtime sonography through the scrotum with color and doppler flow. COMPARISON: None Available. FINDINGS: RIGHT TESTICLE: Measures is 4.9 x 2.4 x 2.9 cm. Normal echotexture and flow. RIGHT EPIDIDYMIS: Epididymal head measures 1.5 x 0.7 x 1.1 cm. Grossly unremarkable appearance with normal flow. LEFT TESTICLE: Measures 5.0 x 2.6 x 2.7 cm. Normal echotexture and flow. LEFT EPIDIDYMIS: Epididymal head measures 1.0 x 0.7 x 1.0 cm. There is a 3 x 2 x 2 mm simple cyst in the head of the epididymis, otherwise grossly normal in appearance with normal flow. HYDROCELE: There are bilateral moderate complicated hydroceles. VARICOCELE: There are bilateral varicoceles, left larger than right. OTHER FINDINGS: None. IMPRESSION: 1. No evidence for testicular mass or torsion. 2. Bilateral varicoceles, larger on the left. 3. Bilateral moderate complicated hydroceles. A preliminary report was provided by [employer].
[2018-10-24] MEDS ORDERED: PROTEASE PO SCH (10:00)
[2018-10-24] MEDS ORDERED: LIPASE PO SCH (10:00)
[2018-10-24] MEDS ORDERED: AMYLASE PO SCH (10:00)
--- NOTE | 2018-10-24 11:19 | CP.PCM.HP ---
History of Present Illness - History of Present Illness History of Present Illness: pt came to [facility] painful penus and nausea rupper abd disconfort possible cholycyctitis Present on Admission - Present on Admission Any Indicators Present on Admission: No Review of Systems - Review of Systems Systems not reviewed;Unavailable: Acuity of Condition - Constitutional Constitutional: As Per HPI - EENT Eyes: As Per HPI Nose/Mouth/Throat: As Per HPI - Cardiovascular Cardiovascular: As Per HPI - Respiratory Respiratory: As Per HPI - Gastrointestinal Gastrointestinal: Abdominal Pain, Heartburn - Genitourinary Additional comments: mulugetaen penus - Reproductive: Male Reproductive:Male: As Per HPI - Musculoskeletal Musculoskeletal: As Per HPI - Integumentary Integumentary: As Per HPI - Neurological Neurological: As Per HPI Past Patient History - Past Medical History & Family History Past Medical History?: Yes - Past Social History Smoking Status: Former Smoker - CARDIAC Hx Hypercholesterolemia: Yes Hx Hypertension: Yes Hx Pacemaker: No - PULMONARY Hx Respiratory Disorders: No - NEUROLOGICAL Hx Dementia: Yes (pt. AAOX3) Hx Transient Ischemic Attacks (TIA): Yes - HEENT Hx HEENT Problems: No - RENAL Hx Chronic Kidney Disease: No - ENDOCRINE/METABOLIC Hx Endocrine Disorders: Yes Hx Diabetes Mellitus Type 2: Yes - HEMATOLOGICAL/ONCOLOGICAL Hx Blood Disorders: Yes Hx Blood Transfusions: No Hx Cancer: No Hx Hepatitis C: Yes (TREATMENT COMPLETED) Other/Comment: THROMBOCYTOPENIA - INTEGUMENTARY Hx Dermatological Problems: No - MUSCULOSKELETAL/RHEUMATOLOGICAL Hx Fractures: No - GASTROINTESTINAL Hx Gastritis: Yes - GENITOURINARY/GYNECOLOGICAL Hx Genitourinary Disorders: No - PSYCHIATRIC Hx Anxiety: Yes Hx Depression: Yes Hx Substance Use: Yes (MORE THAN 20 YEARS ABSTINENCE) - SURGICAL HISTORY Hx Surgeries: Yes Hx Musculoskeletal Surgery: Yes (LESION ON RIGHT LEG REMOVED) - ANESTHESIA Hx Anesthesia: Yes Hx Anesthesia Reactions: No Hx Malignant Hyperthermia: No Meds Allergies/Adverse Reactions: Allergies Allergy/AdvReac Type Severity Reaction Status Date / Time No Known Allergies Allergy Verified 10/23/18 18:01 Physical Exam - Constitutional Appears: Non-toxic - Head Exam Head Exam: ATRAUMATIC - Eye Exam Eye Exam: Normal appearance Pupil Exam: NORMAL ACCOMODATION - ENT Exam ENT Exam: Normal Exam - Neck Exam Neck exam: Positive for: Normal Inspection - Respiratory Exam Respiratory Exam: Clear to Auscultation Bilateral - Cardiovascular Exam Cardiovascular Exam: REGULAR RHYTHM - GI/Abdominal Exam GI & Abdominal Exam: Normal Bowel Sounds, Soft - Exam Additional comments: penus awallen and painful - Extremities Exam Extremities exam: Positive for: normal inspection - Back Exam Back exam: NORMAL INSPECTION - Neurological Exam Neurological exam: Alert, Oriented x3 - Psychiatric Exam Psychiatric exam: Normal Mood - Skin Skin Exam: Normal Color Results - Vital Signs Recent Vital Signs: Last Vital Signs Temp 98.6 F 10/24/18 07:58 Pulse 63 10/24/18 07:58 Resp 20 10/24/18 07:58 BP 157/83 H 10/24/18 07:58 Pulse Ox 96 10/24/18 07:58 - Labs Result Diagrams: 10/24/18 07:29 10/24/18 07:29 Labs: Laboratory Results - last 24 hr 10/23/18 10/23/18 10/23/18 18:53 18:53 18:53 WBC 6.2 RBC 4.36 L Hgb 12.9 Hct 38.7 MCV 88.6 D MCH 29.5 MCHC 33.3 RDW 15.0 H Plt Count 113 L MPV 10.2 Neut % (Auto) 67.5 Lymph % (Auto) 21.0 [place] % (Auto) 9.2 Eos % (Auto) 1.7 Baso % (Auto) 0.6 Neut # (Auto) 4.2 Lymph # (Auto) 1.3 [place] # (Auto) 0.6 Eos # (Auto) 0.1 Baso # (Auto) 0.0 Differential Comment PT 13.6 H INR 1.2 APTT 21 Sodium 135 Potassium 4.0 Chloride 104 Carbon Dioxide 24 Anion Gap 11 BUN 12 Creatinine 0.8 Est GFR ( Amer) > 60 Est GFR (Non-Af Amer) > 60 POC Glucose (mg/dL) Random Glucose 133 H Calcium 9.8 Total Bilirubin 0.9 AST 39 ALT 31 Alkaline Phosphatase 127 H D Total Protein 7.5 Albumin 4.3 Globulin 3.2 Albumin/Globulin Ratio 1.3 Lipase 173 Urine Color Urine Clarity Urine pH Ur Specific [place] Urine Protein Urine Glucose (UA) Urine Ketones Urine Blood Urine Nitrate Urine Bilirubin Urine Urobilinogen Ur Leukocyte Esterase Urine WBC (Auto) Urine RBC (Auto) Ur Squamous Epith Cells 10/23/18 10/24/18 10/24/18 21:00 06:58 07:29 WBC 4.9 RBC 4.17 L Hgb 12.4 Hct 36.9 MCV 88.6 MCH 29.7 MCHC 33.5 RDW 15.3 H Plt Count 103 L MPV 9.9 Neut % (Auto) Lymph % (Auto) [place] % (Auto) Eos % (Auto) Baso % (Auto) Neut # (Auto) Lymph # (Auto) [place] # (Auto) Eos # (Auto) Baso # (Auto) Differential Comment PT INR APTT Sodium Potassium Chloride Carbon Dioxide Anion Gap BUN Creatinine Est GFR ( Amer) Est GFR (Non-Af Amer) POC Glucose (mg/dL) 146 H Random Glucose Calcium Total Bilirubin AST ALT Alkaline Phosphatase Total Protein Albumin Globulin Albumin/Globulin Ratio Lipase Urine Color Yellow Urine Clarity Clear Urine pH 5.0 Ur Specific [place] 1.014 Urine Protein Negative Urine Glucose (UA) Normal Urine Ketones Negative Urine Blood Negative Urine Nitrate Negative Urine Bilirubin Negative Urine Urobilinogen Normal Ur Leukocyte Esterase Neg Urine WBC (Auto) 1 Urine RBC (Auto) 2 Ur Squamous Epith Cells < 1 10/24/18 07:29 WBC RBC Hgb Hct MCV MCH MCHC RDW Plt Count MPV Neut % (Auto) Lymph % (Auto) [place] % (Auto) Eos % (Auto) Baso % (Auto) Neut # (Auto) Lymph # (Auto) [place] # (Auto) Eos # (Auto) Baso # (Auto) Differential Comment PT INR APTT Sodium 137 Potassium 3.7 Chloride 104 Carbon Dioxide 26 Anion Gap 11 BUN 11 Creatinine 0.8 Est GFR ( Amer) > 60 Est GFR (Non-Af Amer) > 60 POC Glucose (mg/dL) Random Glucose 139 H Calcium 9.6 Total Bilirubin 1.0 AST 38 ALT 37 Alkaline Phosphatase 99 Total Protein 7.0 Albumin 3.9 Globulin 3.1 Albumin/Globulin Ratio 1.3 Lipase Urine Color Urine Clarity Urine pH Ur Specific [place] Urine Protein Urine Glucose (UA) Urine Ketones Urine Blood Urine Nitrate Urine Bilirubin Urine Urobilinogen Ur Leukocyte Esterase Urine WBC (Auto) Urine RBC (Auto) Ur Squamous Epith Cells Assessment & Plan - Assessment and Plan (Free Text) Assessment: abd pain cholysystitis ac mulugetaen ana mariaus dm htn Plan: admit as ordered - Date & Time Date: 10/24/18 Time: 11:22
--- NOTE | 2018-10-24 11:22 | CT ---
Date of service: 10/23/2018 PROCEDURE: CT Abdomen and Pelvis with contrast HISTORY: Abdominal pain COMPARISON: Correlation made with CT scan abdomen pelvis 07/18/2018. TECHNIQUE: Contrast dose: Radiation dose: Total exam DLP = 1121.52 mGy-cm. This CT exam was performed using one or more of the following dose reduction techniques: Automated exposure control, adjustment of the mA and/or kV according to patient size, and/or use of iterative reconstruction technique. FINDINGS: LOWER THORAX: Heart size is borderline/mildly enlarged. No significant pericardial effusion. There is a small hiatal hernia. Lung bases demonstrate mild passive/dependent type atelectasis on. No effusion or basilar pneumothorax. LIVER: Liver exhibits normal size however the liver demonstrates a slightly nodular surface contour; rule out cirrhosis. The. No evidence of hepatic mass collection or calcification. Mild fatty hepatic infiltration.. Portal and splenic veins are opacified. The GALLBLADDER AND BILE DUCTS: Gallbladder appears incompletely distended-contracted with slight thick-walled appearance. Findings could be secondary to recent medial however possibility of acute cholecystitis must be considered given the presence of intraluminal gallbladder calculus. There also some minimal the vague infiltration changes in the adjacent mesentery. PANCREAS: Grossly the pancreas appears grossly unremarkable. SPLEEN: Mild splenomegaly. No obvious splenic mass collection or calcification. There is a small on small splenule seen adjacent to the lateral inferior margin of the main body of the spleen There is slight increased vascularity seen in the left upper quadrant of the abdomen phlegmon: Rule out early developing early varices.. ADRENALS: No adrenal lesions. KIDNEYS AND URETERS: Kidneys demonstrate symmetric nephrograms. No evidence of nephrolithiasis or hydronephrosis.. There is a small subcentimeter low-attenuation focus lower pole cortex right left kidney that probably represents a small cyst VASCULATURE: Unremarkable. No aortic aneurysm. Mild aortic atherosclerotic calcification or mural plaque present. BOWEL: Evaluation of the bowel is somewhat limited due to the lack of oral contrast. Stomach is incompletely distended with fairly significant wall thickening in part due to incomplete distention however gastritis or other intrinsic/invasive wall lesion not excluded. Clinical correlation recommended. Visualized loops of small bowel exhibit normal contour and caliber no evidence of acute mechanical small bowel obstruction however there does appear to be some fecalized content suggesting stasis. Moderate amount of stool seen within the cecum ascending and transverse colon suggesting mild fecal retention. No definitive abnormal colonic wall thickening identified. APPENDIX: No evidence of acute appendicitis. PERITONEUM: Unremarkable. No free fluid. No free air.There is slight diastasis of the mid anterior abdominal wall small fat containing bilateral inguinal hernias. LYMPH NODES: Multiple small to of mildly enlarged upper abdominal and retroperitoneal lymph nodes. BLADDER: Urinary bladder is incompletely distended which in part accounts for slight thick-walled appearance. Muscular hypertrophy presumably contributes. Possibility of cystitis not excluded. REPRODUCTIVE: The prostate gland measures approximately 4.9 cm in transverse dimension. BONES: Minor multilevel degenerative spondylosis of the lower thoracic and lumbar spine OTHER FINDINGS: None. IMPRESSION: Cholelithiasis with gallbladder wall thickening; findings could be secondary to recent meal with gallbladder contraction however possibility of cholecystitis should be considered. Clinical correlation recommended. Findings consistent with hepatic cirrhosis. The splenomegaly with what appears represent early varices left upper abdomen.. Small splenule. Multiple small- mildly enlarged upper abdominal and retroperitoneal lymph nodes Wall thickening of the stomach likely due to incomplete distention however gastritis or other intrinsic/invasive wall lesion not excluded.
[2018-10-24] MEDS: LIPASE/PROTEASE/AMYLASE 21,000 U ECC PO SCH ×2 (11:28→17:39)
--- NOTE | 2018-10-24 12:13 | US ---
Date of service: 10/24/2018 HISTORY: r/o cholecystitis COMPARISON: CT abdomen and pelvis from 10/23/2018. TECHNIQUE: Grayscale imaging was performed. FINDINGS: LIVER: Measures 17.5 cm. There is diffuse increased echogenicity of the liver parenchyma. No mass. No intrahepatic bile duct dilatation. GALLBLADDER: There is 9 mm gallstone. No wall thickening, pericholecystic fluid or positive sonographic Wren's sign. COMMON BILE DUCT: Measures 4.0 mm. No stones. No dilatation. PANCREAS: Unremarkable as visualized. No mass. No ductal dilatation. RIGHT KIDNEY: Measures 12.2cm. Normal echogenicity. No calculus, mass, or hydronephrosis. LEFT KIDNEY: Measures 12.9cm. Normal echogenicity. No calculus, mass, or hydronephrosis. SPLEEN: The spleen is enlarged and measures 15.8 cm. Normal echotexture. AORTA: No aneurysmal dilatation. IVC: Unremarkable. OTHER FINDINGS: None. IMPRESSION: 1. Cholelithiasis. No sonographic evidence for acute cholecystitis. 2. Fatty liver. 3. Mild splenomegaly.
--- NOTE | 2018-10-24 17:05 | CP.PCM.PN ---
Subjective - Date & Time of Evaluation Date of Evaluation: 10/24/18 Time of Evaluation: 10:00 - Subjective Subjective: Surgery progress note for Dr. Zhang Pt seen and examined at bedside, denies any nausea, vomiting, abdominal pain, or any other abdominal symptoms. Still has swelling and pain in his penis, but is able to retract his foreskin and urinate. Objective - Vital Signs/Intake and Output Vital Signs (last 24 hours): Temp Pulse Resp BP Pulse Ox 97.9 F 64 20 159/86 H 98 10/24/18 16:20 10/24/18 16:20 10/24/18 16:20 10/24/18 16:20 10/24/18 16:20 Intake and Output: 10/24/18 10/24/18 06:59 18:59 Intake Total 0 Balance 0 - Medications Medications: Current Medications Amlodipine Besylate (Norvasc) 5 mg PO DAILY [facility] Last Admin: 10/24/18 09:17 Dose: 5 mg Heparin Sodium (Porcine) (Heparin) 5,000 units SC Q12 [facility] Last Admin: 10/24/18 09:17 Dose: 5,000 units Insulin Aspart (Novolog) 0 unit SC ACHS [facility]; Protocol Last Admin: 10/24/18 11:31 Dose: Not Given Losartan Potassium (Cozaar) 100 mg PO DAILY [facility] Last Admin: 10/24/18 09:16 Dose: 100 mg Morphine Sulfate (Morphine) 1 mg IVP Q6 [facility] Last Admin: 10/24/18 11:10 Dose: Not Given Multivitamins (Hexavitamin) 1 tab PO DAILY [facility] Last Admin: 10/24/18 09:17 Dose: 1 tab Pantoprazole Sodium (Protonix Ec Tab) 40 mg PO DAILY [facility] Last Admin: 10/24/18 09:18 Dose: 40 mg Propranolol HCl (Inderal) 10 mg PO DAILY [facility] Last Admin: 10/24/18 09:17 Dose: 10 mg Sucralfate (Carafate Tab) 1 gm PO BID [facility] Last Admin: 10/24/18 09:16 Dose: 1 gm - Labs Labs: 10/24/18 07:29 10/24/18 07:29 PT 13.6 SECONDS (9.7-12.2) H 10/23/18 18:53 INR 1.2 10/23/18 18:53 APTT 21 SECONDS (21-34) 10/23/18 18:53 - Constitutional Appears: Well, Non-toxic, No Acute Distress - Head Exam Head Exam: ATRAUMATIC, NORMOCEPHALIC - Eye Exam Eye Exam: Normal appearance. absent: Conjunctival injection, Scleral icterus - ENT Exam ENT Exam: Mucous Membranes Moist, Normal Oropharynx - Respiratory Exam Respiratory Exam: NORMAL BREATHING PATTERN. absent: Accessory Muscle Use, Respiratory Distress - Cardiovascular Exam Cardiovascular Exam: RRR - GI/Abdominal Exam GI & Abdominal Exam: Soft. absent: Distended, Tenderness Additional comments: negative sánchez's sign - Exam External exam: Erythema (penile moderate erythema and edema) Additional comments: foreskin retractible, no purulent drainage - Extremities Exam Extremities Exam: absent: Calf Tenderness, Pedal Edema, Tenderness - Neurological Exam Neurological Exam: Alert, Awake, Oriented x3 - Psychiatric Exam Psychiatric exam: Normal Affect, Normal Mood - Skin Skin Exam: Dry, Normal Color, Warm Assessment and Plan - Assessment and Plan (Free Text) Assessment: 68M with incidentally found cholelithiasis, no signs or symptoms of cholecyst itis Plan: At this time, patient is completely asymptomatic and has no signs of cholecystitis, so no surgical intervention is indicated at this time Follow up urology recs Medical management per primary Pt may follow up with Dr. Zhang in his office as an outpatient for any further questions or concerns Discussed with Dr. Leatha Romero, PGY2
[2018-10-24 17:12] LABS: INR 1.3; PROTHROMBIN TIME 13.8 SECONDS (9.7-12.2)
--- NOTE | 2018-10-24 18:05 | CP.PCM.CON ---
Past Patient History - Past Medical History & Family History Past Medical History?: Yes - Past Social History Smoking Status: Former Smoker - CARDIAC Hx Hypercholesterolemia: Yes Hx Hypertension: Yes Hx Pacemaker: No - PULMONARY Hx Respiratory Disorders: No - NEUROLOGICAL Hx Dementia: Yes (pt. AAOX3) Hx Transient Ischemic Attacks (TIA): Yes - HEENT Hx HEENT Problems: No - RENAL Hx Chronic Kidney Disease: No - ENDOCRINE/METABOLIC Hx Endocrine Disorders: Yes Hx Diabetes Mellitus Type 2: Yes - HEMATOLOGICAL/ONCOLOGICAL Hx Blood Disorders: Yes Hx Blood Transfusions: No Hx Cancer: No Hx Hepatitis C: Yes (TREATMENT COMPLETED) Other/Comment: THROMBOCYTOPENIA - INTEGUMENTARY Hx Dermatological Problems: No - MUSCULOSKELETAL/RHEUMATOLOGICAL Hx Fractures: No - GASTROINTESTINAL Hx Gastritis: Yes - GENITOURINARY/GYNECOLOGICAL Hx Genitourinary Disorders: No - PSYCHIATRIC Hx Anxiety: Yes Hx Depression: Yes Hx Substance Use: Yes (MORE THAN 20 YEARS ABSTINENCE) - SURGICAL HISTORY Hx Surgeries: Yes Hx Musculoskeletal Surgery: Yes (LESION ON RIGHT LEG REMOVED) - ANESTHESIA Hx Anesthesia: Yes Hx Anesthesia Reactions: No Hx Malignant Hyperthermia: No Meds Allergies/Adverse Reactions: Allergies Allergy/AdvReac Type Severity Reaction Status Date / Time No Known Allergies Allergy Verified 10/23/18 18:01 - Medications Medications: Current Medications Amlodipine Besylate (Norvasc) 5 mg PO DAILY [facility] Last Admin: 10/24/18 09:17 Dose: 5 mg Heparin Sodium (Porcine) (Heparin) 5,000 units SC Q12 [facility] Last Admin: 10/24/18 09:17 Dose: 5,000 units Insulin Aspart (Novolog) 0 unit SC [facility]; Protocol Last Admin: 10/24/18 17:40 Dose: Not Given Losartan Potassium (Cozaar) 100 mg PO DAILY [facility] Last Admin: 10/24/18 09:16 Dose: 100 mg Morphine Sulfate (Morphine) 1 mg IVP Q6 [facility] Last Admin: 10/24/18 17:42 Dose: Not Given Multivitamins (Hexavitamin) 1 tab PO DAILY [facility] Last Admin: 10/24/18 09:17 Dose: 1 tab Pantoprazole Sodium (Protonix Ec Tab) 40 mg PO DAILY [facility] Last Admin: 10/24/18 09:18 Dose: 40 mg Propranolol HCl (Inderal) 10 mg PO DAILY [facility] Last Admin: 10/24/18 09:17 Dose: 10 mg Sucralfate (Carafate Tab) 1 gm PO BID [facility] Last Admin: 10/24/18 17:39 Dose: 1 gm Results - Vital Signs Recent Vital Signs: Last Vital Signs Temp 97.9 F 10/24/18 16:20 Pulse 64 10/24/18 16:20 Resp 20 10/24/18 16:20 BP 159/86 H 10/24/18 16:20 Pulse Ox 98 10/24/18 16:20 - Labs Result Diagrams: 10/24/18 07:29 10/24/18 07:29 Labs: Laboratory Results - last 24 hr 10/23/18 10/23/18 10/23/18 18:53 18:53 18:53 WBC 6.2 RBC 4.36 L Hgb 12.9 Hct 38.7 MCV 88.6 D MCH 29.5 MCHC 33.3 RDW 15.0 H Plt Count 113 L MPV 10.2 Neut % (Auto) 67.5 Lymph % (Auto) 21.0 [place] % (Auto) 9.2 Eos % (Auto) 1.7 Baso % (Auto) 0.6 Neut # (Auto) 4.2 Lymph # (Auto) 1.3 [place] # (Auto) 0.6 Eos # (Auto) 0.1 Baso # (Auto) 0.0 Differential Comment PT 13.6 H INR 1.2 APTT 21 Sodium 135 Potassium 4.0 Chloride 104 Carbon Dioxide 24 Anion Gap 11 BUN 12 Creatinine 0.8 Est GFR ( Amer) > 60 Est GFR (Non-Af Amer) > 60 POC Glucose (mg/dL) Random Glucose 133 H Calcium 9.8 Total Bilirubin 0.9 AST 39 ALT 31 Alkaline Phosphatase 127 H D Total Protein 7.5 Albumin 4.3 Globulin 3.2 Albumin/Globulin Ratio 1.3 Lipase 173 Urine Color Urine Clarity Urine pH Ur Specific [place] Urine Protein Urine Glucose (UA) Urine Ketones Urine Blood Urine Nitrate Urine Bilirubin Urine Urobilinogen Ur Leukocyte Esterase Urine WBC (Auto) Urine RBC (Auto) Ur Squamous Epith Cells 10/23/18 10/24/18 10/24/18 21:00 06:58 07:29 WBC 4.9 RBC 4.17 L Hgb 12.4 Hct 36.9 MCV 88.6 MCH 29.7 MCHC 33.5 RDW 15.3 H Plt Count 103 L MPV 9.9 Neut % (Auto) Lymph % (Auto) [place] % (Auto) Eos % (Auto) Baso % (Auto) Neut # (Auto) Lymph # (Auto) [place] # (Auto) Eos # (Auto) Baso # (Auto) Differential Comment PT INR APTT Sodium Potassium Chloride Carbon Dioxide Anion Gap BUN Creatinine Est GFR ( Amer) Est GFR (Non-Af Amer) POC Glucose (mg/dL) 146 H Random Glucose Calcium Total Bilirubin AST ALT Alkaline Phosphatase Total Protein Albumin Globulin Albumin/Globulin Ratio Lipase Urine Color Yellow Urine Clarity Clear Urine pH 5.0 Ur Specific [place] 1.014 Urine Protein Negative Urine Glucose (UA) Normal Urine Ketones Negative Urine Blood Negative Urine Nitrate Negative Urine Bilirubin Negative Urine Urobilinogen Normal Ur Leukocyte Esterase Neg Urine WBC (Auto) 1 Urine RBC (Auto) 2 Ur Squamous Epith Cells < 1 10/24/18 10/24/18 10/24/18 07:29 11:21 15:57 WBC RBC Hgb Hct MCV MCH MCHC RDW Plt Count MPV Neut % (Auto) Lymph % (Auto) [place] % (Auto) Eos % (Auto) Baso % (Auto) Neut # (Auto) Lymph # (Auto) [place] # (Auto) Eos # (Auto) Baso # (Auto) Differential Comment PT INR APTT Sodium 137 Potassium 3.7 Chloride 104 Carbon Dioxide 26 Anion Gap 11 BUN 11 Creatinine 0.8 Est GFR ( Amer) > 60 Est GFR (Non-Af Amer) > 60 POC Glucose (mg/dL) 165 H 192 H Random Glucose 139 H Calcium 9.6 Total Bilirubin 1.0 AST 38 ALT 37 Alkaline Phosphatase 99 Total Protein 7.0 Albumin 3.9 Globulin 3.1 Albumin/Globulin Ratio 1.3 Lipase Urine Color Urine Clarity Urine pH Ur Specific [place] Urine Protein Urine Glucose (UA) Urine Ketones Urine Blood Urine Nitrate Urine Bilirubin Urine Urobilinogen Ur Leukocyte Esterase Urine WBC (Auto) Urine RBC (Auto) Ur Squamous Epith Cells 10/24/18 17:05 WBC RBC Hgb Hct MCV MCH MCHC RDW Plt Count MPV Neut % (Auto) Lymph % (Auto) [place] % (Auto) Eos % (Auto) Baso % (Auto) Neut # (Auto) Lymph # (Auto) [place] # (Auto) Eos # (Auto) Baso # (Auto) Differential Comment PT 13.8 H INR 1.3 APTT 32 D Sodium Potassium Chloride Carbon Dioxide Anion Gap BUN Creatinine Est GFR ( Amer) Est GFR (Non-Af Amer) POC Glucose (mg/dL) Random Glucose Calcium Total Bilirubin AST ALT Alkaline Phosphatase Total Protein Albumin Globulin Albumin/Globulin Ratio Lipase Urine Color Urine Clarity Urine pH Ur Specific [place] Urine Protein Urine Glucose (UA) Urine Ketones Urine Blood Urine Nitrate Urine Bilirubin Urine Urobilinogen Ur Leukocyte Esterase Urine WBC (Auto) Urine RBC (Auto) Ur Squamous Epith Cells Assessment & Plan - Date & Time Date: 10/24/18 Time: 11:25
--- NOTE | 2018-10-24 18:12 | CP.PCM.PN ---
Subjective - Date & Time of Evaluation Date of Evaluation: 10/24/18 Time of Evaluation: 18:11 - Subjective Subjective: no plan for any surgery at present has evidence of liver cirrhosis asymptomatic cholelithiasis Objective - Vital Signs/Intake and Output Vital Signs (last 24 hours): Temp Pulse Resp BP Pulse Ox 97.9 F 64 20 159/86 H 98 10/24/18 16:20 10/24/18 16:20 10/24/18 16:20 10/24/18 16:20 10/24/18 16:20 Intake and Output: 10/24/18 10/24/18 06:59 18:59 Intake Total 0 Balance 0 - Medications Medications: Current Medications Amlodipine Besylate (Norvasc) 5 mg PO DAILY [facility] Last Admin: 10/24/18 09:17 Dose: 5 mg Heparin Sodium (Porcine) (Heparin) 5,000 units SC Q12 [facility] Last Admin: 10/24/18 09:17 Dose: 5,000 units Insulin Aspart (Novolog) 0 unit SC ACHS [facility]; Protocol Last Admin: 10/24/18 17:40 Dose: Not Given Losartan Potassium (Cozaar) 100 mg PO DAILY [facility] Last Admin: 10/24/18 09:16 Dose: 100 mg Morphine Sulfate (Morphine) 1 mg IVP Q6 [facility] Last Admin: 10/24/18 17:42 Dose: Not Given Multivitamins (Hexavitamin) 1 tab PO DAILY [facility] Last Admin: 10/24/18 09:17 Dose: 1 tab Pantoprazole Sodium (Protonix Ec Tab) 40 mg PO DAILY [facility] Last Admin: 10/24/18 09:18 Dose: 40 mg Propranolol HCl (Inderal) 10 mg PO DAILY [facility] Last Admin: 10/24/18 09:17 Dose: 10 mg Sucralfate (Carafate Tab) 1 gm PO BID [facility] Last Admin: 10/24/18 17:39 Dose: 1 gm - Labs Labs: 10/24/18 07:29 10/24/18 07:29 PT 13.8 SECONDS (9.7-12.2) H 10/24/18 17:05 INR 1.3 10/24/18 17:05 APTT 32 SECONDS (21-34) D 10/24/18 17:05
[2018-10-25] MEDS: (Novolog) Insulin Aspart, Recombinant 100 u/ml 10 ml vial SC SCH ×3 (07:29→16:13)
[2018-10-25] MEDS: LIPASE/PROTEASE/AMYLASE 21,000 U ECC PO SCH ×3 (08:39→17:13)
[2018-10-25] MEDS: Pantoprazole 40 mg EC Tab PO SCH (10:07)
[2018-10-25] MEDS: Multiple Vitamins Tab PO SCH (10:07)
[2018-10-25 17:01] VITALS: BP 124/70; PULSE 63; TEMP 98.3; O2SAT 95
--- NOTE | 2018-10-25 21:11 | CON ---
DATE: 10/25/2018 UROLOGY CONSULTATION REQUESTED BY: Jeimy Perez MD UROLOGY CONSULTATION FILLED BY: Talita Pressley MD REASON FOR CONSULTATION: Penile swelling. HISTORY OF PRESENT ILLNESS: The patient is a 68-year-old male with penile swelling. The patient is in otherwise fair health. The patient has history of hypertension. The patient has history of diabetes. The patient also has history of prostatic enlargement. The patient has been followed by his urologist, Dr. Argueta in [place]. The patient has been treated for his prostate with Flomax. Mr. Hunter is admitted with penile swelling. He reports that he has had "rough sex," 2 to 3 days ago. Thereafter, there was swelling of the penis. The patient reports that he did not have penetrative intercourse. Rather, he had manual and oral stimulation. He reports no breaks of the skin. There has been no hematuria. The patient voids with good urinary stream with good control. There is no history of urolithiasis. No flank pain. No recent fever or rigors. There has been no urethral discharge. The patient has history of hypertension, diabetes. The patient has history of BPH. PHYSICAL EXAMINATION: GENERAL: The patient is a well-developed, well-nourished male, appearing his stated age. The patient is awake and alert. ABDOMEN: Soft, nontender, nondistended. No mass or organomegaly. GENITALIA: Normal phallus. The penis is edematous. There is no focal lesion of the penis. There is no erythema. There is no ecchymosis. The urethral meatus is normal. There is no discharge. The penile shaft has a diffuse edema in a circumferential fashion. The scrotal contents are normal without inflammation. IMPRESSION: A 68-year-old male with penile edema. The edema is likely related to the recent sexual activity, as reported by the patient. The patient has history of BPH for which he is followed by his urologist. The patient also has diabetes and hypertension. RECOMMENDATIONS AND PLAN: Penile elevation. Monitor clinical course. Further therapy to follow according to clinical course. Talita Pressley MD cc: Jeimy Perez MD
== END 2018-10-25 17:36 | disposition home or self-care (01) | DRG 446 ==
LOC: C.ER 17:55 → C.3T 22:00
PROVIDERS: ADMIT Internal Medicine; ATTEND Internal Medicine
DX: K80.20 Calculus of gallbladder without cholecystitis without obstruction (principal); N48.89 Other specified disorders of penis; E11.9 Type 2 diabetes mellitus without complications; I10 Essential (primary) hypertension; K21.9 Gastro-esophageal reflux disease without esophagitis; E78.00 Pure hypercholesterolemia, unspecified; F03.90 Unspecified dementia, unspecified severity, without behavioral disturbance, psychotic disturbance, mood disturbance, and anxiety; K74.60 Unspecified cirrhosis of liver; Z86.73 Personal history of transient ischemic attack (TIA), and cerebral infarction without residual deficits; Z87.891 Personal history of nicotine dependence; N40.0 Benign prostatic hyperplasia without lower urinary tract symptoms